=== PATIENT | female | born 1990 | race Caucasian/White ===

== ENCOUNTER 2023-11-15 09:22 | Outpatient (AMB) | payer OTHER, SELFPAY ==
--- NOTE | 2023-11-15 09:54 | AM.OFFWIN_ITS ---
Intake Vital Signs 11/15/23 09:56 Weight 132 lb BP 120/82 Blood Pressure Location Lt brachial Position Sitting Pulse 76 Pulse Source Pulse Oximeter Pulse Oximetry (%) 98 Oxygen Delivery Method Room Air Intake Visit Reasons: [employer]WORK [employer]ST Step on agustín staple/ would like Tetanus shot Intake Note: Patient here because she was cleaning the floors and stepped on a nail/staple in rug and tore her big toe on right foot. 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 She stepped on a nail coming out of a rug yesterday and this hooked the skin under her big toe and tore it up slightly. She had a smalll amount of bleeding at the time. She cleansed area with soap and water and applied a bandaid. She is requesting a Tetanus vaccine as it has been >10 years since her last booster. [facility] Social History Patient Tobacco Use Status: Never used Tobacco Review of Systems Const All systems reviewed & are unremarkable except as noted in HPI and below Physical Exam Vital Signs: Last Vital Signs Pulse 76 11/15/23 09:56 BP 120/82 11/15/23 09:56 Pulse Ox 98 11/15/23 09:56 Oxygen Delivery Method Room Air 11/15/23 09:56 Const General: cooperative, healthy appearing, comfortable and no acute distress Resp Effort & Inspection: normal respiratory effort Skin General skin exam: no rashes or lesions noted Extrem Left lower extremity: foot Details: normal capillary refill and puncture wound (no erythema, warmth, drainage, tenderness) plantar great toe Psych Appearance: grossly normal Mental Status: mental status grossly normal Speech and movement: Normal speech and movement present Assessment & Plan Assessment & Plan (1) Puncture wound of toe, right: Code(s): S91.139A - Puncture wound without foreign body of unspecified toe(s) without damage to nail, initial encounter Qualifiers: Encounter type: initial encounter Qualified Code(s): S91.139A - Puncture wound without foreign body of unspecified toe(s) without damage to nail, initial encounter Plan: Site appears normal without evidence of infection. Reviewed signs/symptoms of infection and to return to the clinic if these develop. Recommended keeping area clean/dry. TDAP to be given. Patient agrees to plan. (2) Immunization due: Code(s): Z23 - Encounter for immunization Plan: TDAP given. Orders: Orders TDaP Immunization Today S91.139A - Puncture wound without foreign body of unspecified toe(s) without damage to nail, initial encounter, Z23 - Encounter for immunization Medications: New Boostrix Tdap (diphth,pertus(acell),tetanus) 0.5 mL IM ONCE 0.5 mL 0RF NS S91.139A - Puncture wound without foreign body of unspecified toe(s) without damage to nail, initial encounter, Z23 - Encounter for immunization Coding Level of Care Code Est Pt Level 3 (89929) Diagnoses Puncture wound of toe of right foot, initial encounter S91.139A Encounter type: initial encounter Immunization due Z23
[2023-11-15 09:56] VITALS: BP 120/82; PULSE 76; O2SAT 98
== END 2023-11-15 10:32 | disposition home or self-care (01) ==
PROVIDERS: Visit Provider Nurse Practitioner Family
DX: S91.131A Puncture wound without foreign body of right great toe without damage to nail, initial encounter (principal)
CPT/HCPCS: 90471; 90715; 99213